=== PATIENT | female | born 1935 | race Two or more races ===

== ENCOUNTER 2025-03-09 17:26 | Emergency (ER) | payer OTHER ==
[~2025-03-09] VITALS: Ht 165.1 cm; Wt 64.0 kg
[2025-03-09 17:34] VITALS: TEMP 98
[2025-03-09] MEDS ORDERED: hydrALAZINE HCL IV 20 MG VIAL ONE (18:28)
[2025-03-09 18:29] LABS: PLATELET COUNT (AUTO) 337 K/uL (150-450); RED BLOOD CELL COUNT(AUTO) 3.68 MIL/uL (4.0-5.2); RED CELL DISTRIBUTION WIDTH 14.6 % (11.5-15.0); WHITE BLOOD COUNT (AUTO) 7.6 K/uL (4.3-11.0)
[2025-03-09] MEDS: hydrALAZINE HCL IV 20 MG VIAL IV ONE (18:37)
[2025-03-09 18:42] LABS: CALCIUM, SERUM 9.5 mg/dL (8.5-10.1); CREATININE 0.8 mg/dL (0.6-1.3); SODIUM SERUM 138 mmol/L (136-145); UREA NITROGEN, BLOOD 8 mg/dL (7-18)
[2025-03-09] MEDS ORDERED: METOPROLOL TARTRATE INJ 5 MG/5 ML AMPUL ONE (22:17)
[2025-03-09] MEDS ORDERED: METOPROLOL TARTRATE 25 MG TABLET ONE (22:18)
[2025-03-09] MEDS: METOPROLOL TARTRATE INJ 5 MG/5 ML AMPUL IV ONE (22:23)
[2025-03-09] MEDS: METOPROLOL TARTRATE 25 MG TABLET PO ONE (22:23)
[2025-03-09 23:20] VITALS: BP 181/95; O2SAT 96
== END 2025-03-10 01:01 | disposition short-term general hospital (02) ==
LOC: ER 17:44
DX: R79.89 Other specified abnormal findings of blood chemistry (principal); I11.0 Hypertensive heart disease with heart failure; E78.5 Hyperlipidemia, unspecified; I50.9 Heart failure, unspecified; K21.9 Gastro-esophageal reflux disease without esophagitis; Z88.1 Allergy status to other antibiotic agents
CPT/HCPCS: 99285; 96374; 96375; 93005; 85025; 80048; 36415; 84484 ×3; J0360; J3490